=== PATIENT | female | born 1940 | race Caucasian/White ===

== ENCOUNTER 2021-02-22 19:50 | Emergency (ER) | payer MEDICARE, OTHER ==
[~2021-02-22] VITALS: Ht 160 cm; Wt 72.7 kg
[2021-02-22 21:25] VITALS: BP 165/86
== END 2021-02-22 21:27 | disposition home or self-care (01) ==
LOC: ER 19:50
DX: M25.562 Pain in left knee (principal); M19.90 Unspecified osteoarthritis, unspecified site; G89.29 Other chronic pain; Z72.89 Other problems related to lifestyle; Z88.6 Allergy status to analgesic agent; Z88.8 Allergy status to other drugs, medicaments and biological substances
CPT/HCPCS: 73560; 99283